=== PATIENT | female | born 1995 | race Caucasian/White ===

== ENCOUNTER 2025-03-08 16:11 | Emergency (ER) | payer OTHER ==
[~2025-03-08] VITALS: Ht 165.1 cm; Wt 59.0 kg
[2025-03-08 16:18] VITALS: TEMP 98.3
[2025-03-08] MEDS ORDERED: IV NS 0.9% 250 ML IV ONE (17:20)
[2025-03-08] MEDS ORDERED: IOHEXOL-300 100 ML VIAL IV ONE (17:20)
[2025-03-08 17:22] LABS: APPEARANCE,URINE SLIGHTLY CLOUDY (CLEAR); BLOOD, URINE 3+ Ery/uL (NEGATIVE); LEUKOCYTE ESTERASE ,URINE 3+ (NEGATIVE); NITRITE, URINE POSITIVE (NEGATIVE); UGLUCOSE NEGATIVE (NEGATIVE)
[2025-03-08 17:24] LABS: PLATELET COUNT (AUTO) 210 K/uL (150-450); RED BLOOD CELL COUNT(AUTO) 4.28 MIL/uL (4.0-5.2); RED CELL DISTRIBUTION WIDTH 13.0 % (11.5-15.0); WHITE BLOOD COUNT (AUTO) 10.3 K/uL (4.3-11.0)
[2025-03-08 17:36] LABS: ASPARTATE AMINOTRANSFERASE 15.0 U/L (15-37); CALCIUM, SERUM 9.0 mg/dL (8.5-10.1); CREATININE 0.7 mg/dL (0.6-1.3); SODIUM SERUM 133.0 mmol/L (136-145); TOTAL PROTEIN, SERUM 7.4 g/dL (6.4-8.2); UREA NITROGEN, BLOOD 14.0 mg/dL (7-18)
[2025-03-08] MEDS ORDERED: KETOROLAC TROMETHAMINE 15 MG/ML VIAL ONE (18:00)
[2025-03-08] MEDS ORDERED: FAMOTIDINE/PF INJ 20 MG/2 ML VIAL IV ONE (18:00)
[2025-03-08 18:01] LABS: ADD URINE CULTURE YES; SQUAMOUS EPITHELIAL CELL,UR Many /HPF (None Seen)
[2025-03-08] MEDS: IV NS 0.9% 1,000 ML BAG IV ONE (18:05)
[2025-03-08] MEDS: FAMOTIDINE/PF INJ 20 MG/2 ML VIAL IV ONE (18:06)
[2025-03-08] MEDS: KETOROLAC TROMETHAMINE 15 MG/ML VIAL IV ONE (18:11)
[2025-03-08] MEDS ORDERED: ONDA4TAB5 PO (18:22)
[2025-03-08] MEDS ORDERED: CEPH-570 PO (18:22)
[2025-03-08] MEDS ORDERED: CEFTRIAXONE 500 MG VIAL ONE (18:49)
[2025-03-08] MEDS ORDERED: LIDOCAINE /MPF 1% VIAL 5 ML VIAL ONE (18:49)
[2025-03-08] MEDS: CEFTRIAXONE 1 G VIAL IM ONE (18:55)
[2025-03-08 19:12] VITALS: BP 111/71; O2SAT 99
== END 2025-03-08 19:12 | disposition home or self-care (01) ==
LOC: ER 16:16
DX: N12 Tubulo-interstitial nephritis, not specified as acute or chronic (principal); Z87.442 Personal history of urinary calculi
CPT/HCPCS: 99285; 74177; 96374; 96361; 96375; 85025; 80048; 87077; 87086; 83690; 80076; 84703; 87186; 81001; 36415; 96372; J1885; J1308; J0696; J7030; J7050; J3490; Q9967